=== PATIENT | male | born 1955 | race Caucasian/White ===

== ENCOUNTER 2021-12-18 22:07 | Emergency (ER) | payer MEDICARE, MEDICAID, SELFPAY ==
[~2021-12-18] VITALS: Ht 162.6 cm; Wt 68.0 kg
[~2021-12-18 22:07] MED LIST: CARV3.1246 PO; CLOP75TA2 PO; DICL75TA5 PO; LISI-209 PO
--- NOTE | 2021-12-18 22:59 | NUR ---
Patient to ER bed Tent 1 to gown for evaluation. Side rails up.
[2021-12-18 23:01] VITALS: BP_SYST 126
--- NOTE | 2021-12-18 23:02 | NUR ---
Pt brought by self, A&Ox4, pt presents to ER with cough/ congestion/ mild grade fever x 3 days, skin pink and warm, cap refill <3.
--- NOTE | 2021-12-18 23:07 | NUR ---
Report given to Glen SAUNDERS
--- NOTE | 2021-12-19 00:30 | NUR ---
ER at bedside examining patient in the tent
--- NOTE | 2021-12-19 01:40 | NUR ---
Dr Lion re-eval pt and discussing the plan of tx to the pt.
[2021-12-19 02:00] VITALS: BP_SYST 122
--- NOTE | 2021-12-19 02:00 | NUR ---
Patient given verbal discharge instructions and verbalizes understanding. ER MD discussed with patient the results and treatment provided. Patient in stable condition. ID arm band removed. Rx of Decadron,Doxycycline,Zinc given. Patient educated on pain management and to follow up with PMD. Pain Scale . Opportunity for questions provided and answered. Medication side effect fact sheet provided.
[2021-12-19] MEDS ORDERED: DOXY-244 PO (02:19)
[2021-12-19] MEDS ORDERED: DEC1 PO (02:19)
[2021-12-19] MEDS ORDERED: ZINC220T3 PO (02:19)
== END 2021-12-19 02:00 | disposition home or self-care (01) ==
LOC: SED 22:07
DX: U07.1 COVID-19 (principal); J12.82 Pneumonia due to coronavirus disease 2019; I10 Essential (primary) hypertension; E11.9 Type 2 diabetes mellitus without complications; Z88.8 Allergy status to other drugs, medicaments and biological substances; Z79.899 Other long term (current) drug therapy
CPT/HCPCS: 36415; 71045; 99284

== ENCOUNTER 2021-12-19 13:06 | Emergency (ER) | payer MEDICARE, MEDICAID, SELFPAY ==
[~2021-12-19] VITALS: Ht 172.7 cm; Wt 98.0 kg
[~2021-12-19 13:06] MED LIST changes: +DEC1 PO; +DOXY-244 PO; +ZINC220T3 PO
[2021-12-19 13:25] VITALS: BP_SYST 125
--- NOTE | 2021-12-19 13:25 | NUR ---
PT TO REMAIN IN TENT UNTIL ER BED BECOMES AVAILABLE.
--- NOTE | 2021-12-19 13:35 | NUR ---
PT AAO AND AMBULATORY REPORTING THAT HE WAS DIAGNOSED WITH COVID LAST NIGHT AND CAME BACK TO FOR MONOCLONAL ANTIBODIES. PT V/S ARE CURRENTLY STABLE AND REPORTS PRIOR HISTORY OF HTN, DM, PROSTATE, AND STENTS IN HEART. PT REPORTS BODY ACHES 8/10.
[2021-12-19] MEDS ORDERED: SOTROVIMAB 500 MG in NS 100 ML IV ONE (13:45)
[2021-12-19 14:26] LABS: HEMOGLOBIN 15.4 g/dL (14.0-18.0)
[2021-12-19 14:32] LABS: BASOPHILS % (AUTO) 0.1 % (0.0-2.0); EOSINOPHILS % (AUTO) 0.2 % (0.0-4.0); HEMATOCRIT 44.4 % (36-54); LYMPHOCYTES # (AUTO) 0.9 K/uL (1.0-5.5); LYMPHOCYTES % (AUTO) 27.2 % (20.5-51.5); MEAN CORPUSCULAR HEMOGLOBIN 31 pg (27-31); MEAN CORPUSCULAR HGB CONC 35 % (32-36); MEAN CORPUSCULAR VOLUME 89 fL (79.0-98.0); MONOCYTES # (AUTO) 0.4 K/uL (0.0-1.0); MONOCYTES % (AUTO) 11.7 % (1.7-9.3); NEUTROPHILS % (AUTO) 60.8 % (40.0-70.0); PLATELET COUNT (AUTO) 166 K/uL (130-430); RED BLOOD CELL COUNT(AUTO) 4.97 MIL/uL (4.2-6.2); RED CELL DISTRIBUTION WIDTH 12.9 % (9.0-15.0); WHITE BLOOD COUNT (AUTO) 3.3 K/uL (4.8-10.8)
[2021-12-19 14:37] LABS: CALCIUM 8.6 mg/dL (8.4-11.0); CREATININE 0.83 mg/dL (0.55-1.30); POTASSIUM 4.4 mmol/L (3.5-5.1)
[2021-12-19 14:42] LABS: ALBUMIN 3.1 g/dL (3.4-4.8); TOTAL BILIRUBIN 0.7 mg/dL (0.0-1.0)
--- NOTE | 2021-12-19 15:20 | NUR ---
DR. ALCANTAR TO TENT TO ASSESS.
--- NOTE | 2021-12-19 15:25 | NUR ---
PT ELOPED BECAUSE HE DID NOT WANT TO WAIT ANYMORE.
== END 2021-12-19 15:25 | disposition left against medical advice (07) ==
LOC: SED 13:06
DX: U07.1 COVID-19 (principal); I10 Essential (primary) hypertension; E11.9 Type 2 diabetes mellitus without complications; Z79.899 Other long term (current) drug therapy; Z88.6 Allergy status to analgesic agent
CPT/HCPCS: 36415; 80053; 85025; 99284; M0247; Q0247

== ENCOUNTER 2024-02-07 15:29 | Emergency (ER) | payer OTHER, MEDICAID ==
[~2024-02-07] VITALS: Ht 172.7 cm; Wt 95.7 kg
[2024-02-07 15:45] VITALS: BP_SYST 140; PULSE 86; RESP 22; TEMP 98.3; O2SAT 98
[2024-02-07] MEDS ORDERED: IBUP-1969 PO (16:45)
[2024-02-07 17:17] VITALS: BP_SYST 140; PULSE 86; RESP 22; TEMP 98.3; O2SAT 98
== END 2024-02-07 17:17 | disposition home or self-care (01) ==
LOC: SED 15:29
DX: S92.022A Displaced fracture of anterior process of left calcaneus, initial encounter for closed fracture (principal); E11.9 Type 2 diabetes mellitus without complications; I10 Essential (primary) hypertension; Z88.6 Allergy status to analgesic agent; Z79.899 Other long term (current) drug therapy; W01.0XXA Fall on same level from slipping, tripping and stumbling without subsequent striking against object, initial encounter; Y93.89 Activity, other specified; Y92.89 Other specified places as the place of occurrence of the external cause; Y99.8 Other external cause status
CPT/HCPCS: 99283